=== PATIENT | female | born 1990 | race Caucasian/White ===

== ENCOUNTER 2020-12-14 15:10 | Emergency (ER) | payer BC ==
[2020-12-14 15:22] VITALS: BP 114/75; PULSE 116; TEMP 98.6; BMI 19.7
== END 2020-12-14 16:23 | disposition left against medical advice (07) ==
LOC: JER 15:10
DX: F10.10 Alcohol abuse, uncomplicated (principal)
CPT/HCPCS: 81025; 99283-25